=== PATIENT | male | born 1940 ===

== ENCOUNTER 2018-03-27 09:27 | Day surgery (SDC) | payer OTHER ==
[2018-03-27 11:12] LABS: Performing Lab VERACYTE; Test Name FNA
== END 2018-03-27 23:12 | disposition home or self-care (01) ==
LOC: US 09:27
PROVIDERS: Internal Medicine
PROC: 0GBH3ZX Excision of Right Thyroid Gland Lobe, Percutaneous Approach, Diagnostic (ICD-10-PCS; principal; 2018-03-27)
DX: E04.1 Nontoxic single thyroid nodule (principal)
CPT/HCPCS: 10022; 76942

== ENCOUNTER 2018-07-08 20:38 | Inpatient (IN) | payer MEDICARE ==
[~2018-07-08] VITALS: Ht 177.8 cm; Wt 84.0 kg
[~2018-07-08 20:38] MED LIST: ALLO100 PO; Omeprazole20 M1 PO; Percocet 5-3251 EACH PO; TRAM50 PO; XARELTO10 MG PO
[2018-07-08 21:35] LABS: BASOPHILS ABSOLUTE AUTO 0.04 K/mm3 (0.00-0.23); BASOPHILS PERCENT AUTO 0 % (0-2); EOSINOPHILS ABSOLUTE AUTO 0.04 K/mm3 (0.00-0.68); EOSINOPHILS PERCENT AUTO 0 % (0-6); Hemoglobin 13.2 g/dL (13.5-17.5); IMMATURE GRAN ABSOLUTE AUTO 0.05 K/mm3 (0.00-0.10); IMMATURE GRAN PERCENT AUTO 0 % (0-1); LYMPHOCYTES ABSOLUTE AUTO 1.26 K/mm3 (0.84-5.20); LYMPHOCYTES PERCENT AUTO 11 % (21-46); MONOCYTES ABSOLUTE AUTO 1.32 K/mm3 (0.16-1.47); MONOCYTES PERCENT AUTO 11 % (4-13); Mean Corpuscular HGB 34.8 pg (26.0-34.0); Mean Corpuscular HGB Conc 35.7 g/dL (31.5-36.5); Mean Corpuscular Volume 98 fL (80-100); Mean Platelet Volume 9.8 fL (9.1-12.4); NEUTROPHILS ABSOLUTE AUTO 8.83 K/mm3 (1.96-9.15); NEUTROPHILS PERCENT AUTO 77 % (41-73); Platelet Count 189 K/mm3 (150-400); RDW Coefficient Variation 12.4 % (11.7-14.2); RDW Standard Deviation 44.7 fL (35.1-46.3); Red Blood Cell Count 3.79 M/mm3 (4.30-5.90); White Blood Cell Count 11.54 K/mm3 (4.00-11.30)
[2018-07-08 21:54] LABS: Anion Gap 9 mmol/L (6-16); Blood Urea Nitrogen 12 mg/dL (8-24); Bun/Creatinine Ratio 11.7 (12.0-20.0); CO2, Blood 24 mmol/L (21-32); Calcium, Blood 8.9 mg/dL (8.5-10.1); Chloride, Blood 107 mmol/L (98-108); Creatinine, Blood 1.03 mg/dL (0.60-1.20); Glomerular Filtration Rate >60 (60-); Glucose, Blood 118 mg/dL (70-99); Potassium, Blood 3.6 mmol/L (3.5-5.5); Sodium, Blood 140 mmol/L (136-145)
[2018-07-09] MEDS ORDERED: TRAM50 PO (00:11)
[2018-07-09 05:17] LABS: Hemoglobin 11.5 g/dL (13.5-17.5); Mean Corpuscular HGB Conc 33.8 g/dL (31.5-36.5); Mean Corpuscular Volume 97 fL (80-100); Mean Platelet Volume 10.3 fL (9.1-12.4); Platelet Count 174 K/mm3 (150-400); RDW Coefficient Variation 12.5 % (11.7-14.2); RDW Standard Deviation 44.7 fL (35.1-46.3); Red Blood Cell Count 3.49 M/mm3 (4.30-5.90); White Blood Cell Count 9.93 K/mm3 (4.00-11.30)
[2018-07-09 05:29] LABS: Alanine Aminotransfer (ALT/SGP 15 U/L (12-78); Albumin, Blood 2.8 g/dL (3.4-5.0); Alk Phos 51 U/L (50-136); Anion Gap 8 mmol/L (6-16); Aspartate Aminotrans (AST/SGOT 16 U/L (12-37); Bilirubin, Total 0.8 mg/dL (0.1-1.0); Blood Urea Nitrogen 12 mg/dL (8-24); Bun/Creatinine Ratio 13.2 (12.0-20.0); CO2, Blood 26 mmol/L (21-32); Calcium, Blood 8.6 mg/dL (8.5-10.1); Chloride, Blood 107 mmol/L (98-108); Creatinine, Blood 0.91 mg/dL (0.60-1.20); Globulin, Blood 2.7 g/dL (2.2-4.0); Glomerular Filtration Rate >60 (60-); Glucose, Blood 108 mg/dL (70-99); Potassium, Blood 3.3 mmol/L (3.5-5.5); Sodium, Blood 141 mmol/L (136-145); Total Protein, Blood 5.5 g/dL (6.4-8.2)
[2018-07-13] MEDS ORDERED: CYCL10 PO (15:56)
[2018-07-13] MEDS ORDERED: HYDR1TAB94 PO (15:57)
== END 2018-07-13 16:38 | disposition home or self-care (01) | DRG 948 ==
LOC: ER 20:38 → MEDS 23:52 → SURS 07-10 15:01
PROVIDERS: Emergency Medicine; Internal Medicine
DX: G89.18 Other acute postprocedural pain (principal); F05 Delirium due to known physiological condition; M10.9 Gout, unspecified; K27.9 Peptic ulcer, site unspecified, unspecified as acute or chronic, without hemorrhage or perforation; Z98.1 Arthrodesis status; Z96.641 Presence of right artificial hip joint; T40.605A Adverse effect of unspecified narcotics, initial encounter; Y92.239 Unspecified place in hospital as the place of occurrence of the external cause
CPT/HCPCS: 36415; 73502; 80048; 80053; 85025; 85027; 93005; 93010; 96372; 96374; 96375; 96376; 97110; 97116; 97161; 97530; 99285-25; G0378; G8978; G8979; G8980; J1650; J1885; J2405; J2765; J3010